=== PATIENT | female | born 1975 | race African-American/Black ===

== ENCOUNTER 2022-10-19 22:52 | Emergency (ER) | payer SELFPAY ==
[2022-10-19 22:54] VITALS: PULSE 107
== END 2022-10-20 00:06 | disposition left against medical advice (07) ==
LOC: ER 23:32
DX: Z53.21 Procedure and treatment not carried out due to patient leaving prior to being seen by health care provider (principal)
CPT/HCPCS: 99281

== ENCOUNTER 2022-10-20 07:22 | Emergency (ER) | payer SELFPAY ==
[~2022-10-20] VITALS: Ht 162.6 cm; Wt 76.0 kg
[2022-10-20 07:24] VITALS: PULSE 97
[2022-10-20 07:25] VITALS: BP 137/94; RESP 18; O2SAT 100
[2022-10-20 09:30] VITALS: TEMP 98.3
[2022-10-20] MEDS ORDERED: ACETAMINOPHEN 325MG TABLET PO ONE (09:30)
== END 2022-10-20 11:00 | disposition home or self-care (01) ==
LOC: ER 07:22
DX: S99.921A Unspecified injury of right foot, initial encounter (principal); Z88.0 Allergy status to penicillin; G89.11 Acute pain due to trauma; X58.XXXA Exposure to other specified factors, initial encounter; Y93.89 Activity, other specified; Y92.89 Other specified places as the place of occurrence of the external cause; Y99.8 Other external cause status
CPT/HCPCS: 73620; 99283